=== PATIENT | male | born 1940 | race Two or more races ===

== ENCOUNTER 2017-04-22 16:47 | Emergency (ER) | payer OTHER ==
[~2017-04-22] VITALS: Ht 172.7 cm; Wt 69.4 kg
[~2017-04-22 16:47] MED LIST: COZAAR PO; Coreg PO; DOCUSATE SODIU100 MG PO; MEXILETINE PO; PROTONIX40 MG PO; SENOKOT TAB1 TAB PO; SPIRONOLACTONE25 MG PO; Synthroid PO; TRAMADOL HCL50 MG PO; ULTRACET PO; ZANAFLEX4 MG PO
== END 2017-04-22 18:05 | disposition home or self-care (01) ==
LOC: ER 16:47
DX: Z48.02 Encounter for removal of sutures (principal)

== ENCOUNTER 2017-04-25 10:35 | Outpatient (CLI) | payer OTHER | END 2017-04-25 10:57 | disposition home or self-care (01) | LOC: TOM 10:35 | DX: S09.90XA Unspecified injury of head, initial encounter (principal); S06.5X0A Traumatic subdural hemorrhage without loss of consciousness, initial encounter ==

== ENCOUNTER 2017-04-25 10:44 | Outpatient (CLI) | payer OTHER | END 2017-04-25 10:56 | disposition home or self-care (01) | LOC: RAD 10:44 | DX: S62.92XA Unspecified fracture of left hand, initial encounter for closed fracture (principal) ==

== ENCOUNTER 2017-06-24 07:19 | Emergency (ER) | payer OTHER ==
[~2017-06-24] VITALS: Ht 172.7 cm; Wt 69.4 kg
== END 2017-06-24 22:18 | disposition home or self-care (01) ==
LOC: ER 07:19
DX: K56.41 Fecal impaction (principal)

== ENCOUNTER 2017-10-04 13:27 | Emergency (ER) | payer OTHER ==
[~2017-10-04] VITALS: Ht 172.7 cm; Wt 81.2 kg
== END 2017-10-04 20:33 | disposition home or self-care (01) ==
LOC: ER 13:27
DX: C79.31 Secondary malignant neoplasm of brain (principal); C61 Malignant neoplasm of prostate; G93.6 Cerebral edema; N39.0 Urinary tract infection, site not specified; G30.8 Other Alzheimer's disease; F02.80 Dementia in other diseases classified elsewhere, unspecified severity, without behavioral disturbance, psychotic disturbance, mood disturbance, and anxiety; Z74.01 Bed confinement status